=== PATIENT | female | born 1980 | race Caucasian/White ===

== ENCOUNTER 2021-08-01 16:00 | Emergency (ER) | payer OTHER, SELFPAY ==
--- NOTE | 2021-08-01 16:05 | ED.SKABFB ---
HPI - Skin/Abscess/Foreign Bdy General Chief complaint: Dental/Oral Stated complaint: Rt Facial Swelling,Rt Ankle Pain Time Seen by Provider: 08/01/21 16:05 Source: patient Mode of arrival: ambulatory Limitations: no limitations History of Present Illness HPI narrative: Ms. Claudio is a 41-year-old female patient presenting to the clinic today with complaints of right facial swelling and right ankle pain. She reports that the ankle pain is been going off and on for 6 months and is worse when her right leg swells. She reports that the facial swelling just started yesterday and has gradually gotten worse today. Thinks that she has a dental infection. Reports that the swelling in her legs do go down whenever she elevates her lower extremities however the right leg is red and swollen causing her to have ankle pain. States the ankle hurts only when she initially bears weight and then the pain dissipates. Related Data Home Medications Medication Instructions Recorded Confirmed fluoxetine 20 mg capsule (Prozac) 20 mg PO DAILY 08/01/21 08/01/21 Allergies Allergy/AdvReac Type Severity Reaction Status Date / Time ibuprofen Allergy Intermediate Nausea and Verified 08/01/21 16:19 Vomiting nitrofurantoin Allergy Intermediate Nausea and Verified 08/01/21 16:19 Vomiting sulfamethoxazole Allergy Intermediate Nausea and Verified 08/01/21 16:19 Vomiting trimethoprim Allergy Intermediate Nausea and Verified 08/01/21 16:19 Vomiting Review of Systems Review of Systems: Pertinent positives per HPI. Patient denies any fever, chills, rash, headache, visual changes, dizziness, cough, runny nose, sore throat, shortness of breath, chest pain, palpitations, nausea, vomiting, diarrhea, constipation, abdominal pain, or any urinary issues. PMFSH Family History Family History Other Diabetes mellitus Family history of arthritis Family history of malignant neoplasm of breast in first degree relative Social History Social History Smoking status: Light tobacco smoker Alcohol intake: current Comments At the time of my signature, I reviewed and agree with the nursing past medical, surgical, social, and family history. There is no relevant family history pertinent to the patient complaint. Exam Narrative: General: Well-developed, well nourished, in no apparent distress Head: Normocephalic, atraumatic Eyes: Pupils equally round and reactive to light bilaterally, EOM intact, sclera and conjunctive clear, no discharge, lids normal Ears: TMs intact and clear, ear canals clear, no drainage, grossly hearing normal. Nose: Nares patent, no discharge, no inflammation, tenderness to palpation over the right maxillary sinus Mouth: Oropharynx without lesions or masses, poor dentition, MMM. Palpable dental abscess to the right upper jaw, infected tooth number#4 Cardio: Regular rate and rhythm, s1 and s2 normal, no murmur appreciated. Resp: Clear to auscultation bilaterally anteriorly and posteriorly, no rhonchi, rales, wheezing or rubs Musculoskeletal: No deformity, tender to palpation over the right lower leg and ankle, grossly normal range of motion, muscle strength strong and equal, peripheral pulse strong, 2+ pitting edema to bilateral lower extremities, redness with mild erythema to the right lower extremity when compared to the left, no cyanosis, walking with a single-point cane Course Course Emergency Course: Portions of this record may have been created with voice recognition software. Level of Care: Express Care Visit Vital Signs Vital signs: Vital signs reviewed Procedures Abscess I/D oral: Date of Incision: 08/01/21 Technique: needle aspiration Amount of fluid expressed (mL): 1 I&D Results: Pus and Blood Abcess I&D Additional Comments: Verbal consent ob
[2021-08-01 16:08] VITALS: BP 124/86; PULSE 105; RESP 18; TEMP 36.6; O2SAT 98
[2021-08-01] MEDS: cefTRIAXone 1 GM, LIDOCAINE HCL 1% LOCAL INJ 2.1 ML IM (16:29)
== END 2021-08-01 16:40 | disposition home or self-care (01) ==
PROVIDERS: Emergency Provider Nurse Practitioner Family
DX: K04.7 Periapical abscess without sinus (principal); L03.115 Cellulitis of right lower limb; R60.0 Localized edema; M25.571 Pain in right ankle and joints of right foot
CPT/HCPCS: 41800; 96372; 99213; G0463; J0696

== ENCOUNTER 2021-09-05 14:10 | Emergency (ER) | payer OTHER, SELFPAY ==
[2021-09-05 14:29] VITALS: BP 125/77; PULSE 98; RESP 18; TEMP 36.9; O2SAT 100
--- NOTE | 2021-09-05 14:47 | ED_ITS ---
HPI - General Adult General Stated complaint: bilateral leg discoloration History of Present Illness HPI narrative: Cherelle Leon is a 41 yo female with a PMH of depression and leg swelling here for evaluation of bilateral leg discoloration Related Data Home Medications Medication Instructions Recorded Confirmed fluoxetine 20 mg capsule (Prozac) 20 mg PO DAILY 08/01/21 08/01/21 Allergies Allergy/AdvReac Type Severity Reaction Status Date / Time ibuprofen Allergy Intermediate Nausea and Verified 08/01/21 16:19 Vomiting nitrofurantoin Allergy Intermediate Nausea and Verified 08/01/21 16:19 Vomiting sulfamethoxazole Allergy Intermediate Nausea and Verified 08/01/21 16:19 Vomiting trimethoprim Allergy Intermediate Nausea and Verified 08/01/21 16:19 Vomiting PMFSH Family History Family History Other Diabetes mellitus Family history of arthritis Family history of malignant neoplasm of breast in first degree relative Social History Social History Smoking status: Light tobacco smoker Alcohol intake: current Course Vital Signs Vital signs: Vital Signs Temperature 98.5 F 09/05/21 14:29 Pulse Rate 98 09/05/21 14:29 Respiratory Rate 18 09/05/21 14:29 Blood Pressure 125/77 09/05/21 14:29 Pulse Oximetry 100 09/05/21 14:29 Oxygen Delivery Room Air 09/05/21 14:29 Temperature 98.5 F 09/05/21 14:29 Pulse Rate 98 09/05/21 14:29 Respiratory Rate 18 09/05/21 14:29 Blood Pressure 125/77 09/05/21 14:29 Pulse Oximetry 100 09/05/21 14:29 Oxygen Delivery Room Air 09/05/21 14:29 Medical Decision Making Vital Signs Vital Signs: Vital Signs Temperature 98.5 F 09/05/21 14:29 Pulse Rate 98 09/05/21 14:29 Respiratory Rate 18 09/05/21 14:29 Blood Pressure 125/77 09/05/21 14:29 Pulse Oximetry 100 09/05/21 14:29 Oxygen Delivery Room Air 09/05/21 14:29 Temperature 98.5 F 09/05/21 14:29 Pulse Rate 98 09/05/21 14:29 Respiratory Rate 18 09/05/21 14:29 Blood Pressure 125/77 09/05/21 14:29 Pulse Oximetry 100 09/05/21 14:29 Oxygen Delivery Room Air 09/05/21 14:29 Discharge Plan Discharge Prescriptions: No Action fluoxetine [Prozac] 20 mg Capsule 20 mg PO DAILY cephalexin 500 mg capsule 500 mg PO Q8H 10 Days Qty: 30 0RF furosemide 40 mg tablet 40 mg PO DAILY 7 Days Qty: 7 0RF Follow-up/Referrals: PHYSICIAN,GRIEVANCE COORDINATOR [Primary Care Provider] -
--- NOTE | 2021-09-05 14:53 | ED.SKABFB ---
HPI - Skin/Abscess/Foreign Bdy General Stated complaint: bilateral leg discoloration Time Seen by Provider: 09/05/21 14:55 History of Present Illness HPI narrative: Cherelle Leon is a 41 yo female with a PMH of depression and bilateral leg edema who comes to express care with discoloation of skin of both legs. Related Data Home Medications Medication Instructions Recorded Confirmed fluoxetine 20 mg capsule (Prozac) 20 mg PO DAILY 08/01/21 08/01/21 Allergies Allergy/AdvReac Type Severity Reaction Status Date / Time ibuprofen Allergy Intermediate Nausea and Verified 08/01/21 16:19 Vomiting nitrofurantoin Allergy Intermediate Nausea and Verified 08/01/21 16:19 Vomiting sulfamethoxazole Allergy Intermediate Nausea and Verified 08/01/21 16:19 Vomiting trimethoprim Allergy Intermediate Nausea and Verified 08/01/21 16:19 Vomiting PMFSH Family History Family History Other Diabetes mellitus Family history of arthritis Family history of malignant neoplasm of breast in first degree relative Social History Social History Smoking status: Light tobacco smoker Alcohol intake: current Course Vital Signs Vital signs: Vital Signs Temperature 98.5 F 09/05/21 14:29 Pulse Rate 98 09/05/21 14:29 Respiratory Rate 18 09/05/21 14:29 Blood Pressure 125/77 09/05/21 14:29 Pulse Oximetry 100 09/05/21 14:29 Oxygen Delivery Room Air 09/05/21 14:29 Temperature 98.5 F 09/05/21 14:29 Pulse Rate 98 09/05/21 14:29 Respiratory Rate 18 09/05/21 14:29 Blood Pressure 125/77 09/05/21 14:29 Pulse Oximetry 100 09/05/21 14:29 Oxygen Delivery Room Air 09/05/21 14:29 Discharge Plan Discharge Prescriptions: No Action fluoxetine [Prozac] 20 mg Capsule 20 mg PO DAILY cephalexin 500 mg capsule 500 mg PO Q8H 10 Days Qty: 30 0RF furosemide 40 mg tablet 40 mg PO DAILY 7 Days Qty: 7 0RF Follow-up/Referrals: PHYSICIAN,PLATFORM CONSULTANT [Primary Care Provider] -
== END 2021-09-05 14:58 | disposition left against medical advice (07) ==
PROVIDERS: Emergency Provider Internal Medicine Hematology & Oncology
DX: Z53.21 Procedure and treatment not carried out due to patient leaving prior to being seen by health care provider (principal)
CPT/HCPCS: 99199

== ENCOUNTER 2022-06-21 14:00 | Emergency (ER) | payer OTHER, SELFPAY ==
[2022-06-21 14:11] VITALS: BP 145/82; PULSE 92; RESP 18; TEMP 36.3; O2SAT 97
--- NOTE | 2022-06-21 14:24 | ED.DENTAL ---
HPI - Dental/Oral General Chief complaint: Dental/Oral Stated complaint: toothache Time Seen by Provider: 06/21/22 14:25 Source: patient Mode of arrival: ambulatory Limitations: no limitations History of Present Illness HPI Narrative: Patient is a 42-year-old female that presents with right lower dental pain for 3 days. Patient has been taking ibuprofen with little to no relief. Patient states she cannot get into the dental clinic for 3 months but has an appointment scheduled. Patient has multiple broken teeth that need extraction. Denies any better taste in mouth, difficulty swallowing or shortness of breath. Denies any fever, chills, nausea, vomiting, diarrhea. Related Data Home Medications Medication Instructions Recorded Confirmed fluoxetine 20 mg capsule (Prozac) 20 mg PO DAILY 08/01/21 06/21/22 Allergies Allergy/AdvReac Type Severity Reaction Status Date / Time ibuprofen AdvReac Intermediate Nausea and Verified 06/21/22 14:22 Vomiting nitrofurantoin AdvReac Intermediate Nausea and Verified 06/21/22 14:22 Vomiting sulfamethoxazole AdvReac Intermediate Nausea and Verified 06/21/22 14:22 Vomiting trimethoprim AdvReac Intermediate Nausea and Verified 06/21/22 14:22 Vomiting Review of Systems Review of Systems: All systems reviewed & are unremarkable except as noted in HPI and below Constitutional: Constitutional: Denies body ache(s), Denies fever(s), Denies headache(s), Denies malaise and Denies weakness Eyes: Eyes: Denies loss of vision ENT: Denies otalgia, Reports facial pain (jaw), Denies headache(s), Denies nasal discharge, Denies sinus pain and Denies sore throat Cardiovascular: Cardiovascular: Denies chest pain, Denies irregular heart rhythm and Denies dyspnea Respiratory: Respiratory: Denies dyspnea Gastrointestinal: Gastrointestinal: Denies abdominal pain, Denies melena, Denies hematochezia, Denies diarrhea, Denies nausea and Denies vomiting Musculoskeletal: Musculoskeletal: Denies back pain, Denies myalgias and Denies arthralgias Integumentary/Breasts: Skin/Breast: Denies pruritus and Denies rash Neurologic: Denies headache(s), Denies loss of vision and Denies weakness Psychiatric: Psychiatric: Reports no additional psychiatric complaints PMFSH Family History Family History Other Diabetes mellitus Family history of arthritis Family history of malignant neoplasm of breast in first degree relative Social History Social History Smoking status: Light tobacco smoker Alcohol intake: current Comments At time of signature, agree with nursing past medical, surgical, social and family history. There is no relevant family history pertinent to the presenting complaint. Exam Const: General: cooperative, healthy appearing, comfortable, no acute distress and well nourished Nutritional Appearance: well nourished Orientation/consciousness: patient oriented x3 Limitations: no limitations HENMT: Head: normal to inspection, normocephalic and atraumatic Ears: hearing grossly normal bilaterally, external ears normal, TM's normal bilaterally and mastoids normal bilaterally Face/Nose/Sinus: Normal external nose present, normal facial exam and face symmetric Face and sinus: normal facial exam and face symmetric Mouth: Yes Normal oral and palatal mucosa present, Yes lip normal, Yes tongue normal, Yes Normal salivary glands and ducts present, Yes moist mucous membranes, No drooling, No muffled voice, No trismus and No restricted motion Teeth and gingiva: caries and poor dentition Teeth image: 1. Broken teeth present with surrounding erythema. Eyes: General: appearance normal, both eyes and all related structures Alignment and Position: alignment normal and position normal Periorbital: periorbital findings normal Eyelids: eyelids normal Pupils: Equal, roun
== END 2022-06-21 14:41 | disposition home or self-care (01) ==
PROVIDERS: Emergency Provider Nurse Practitioner Family
DX: K04.7 Periapical abscess without sinus (principal); F17.290 Nicotine dependence, other tobacco product, uncomplicated
CPT/HCPCS: 99213; G0463